=== PATIENT | female | born 1965 | race Hispanic/Latino ===

== ENCOUNTER 2021-03-01 09:01 | Outpatient (CLI) | payer OTHER | END 2021-03-01 09:02 | disposition home or self-care (01) | LOC: BICULT 09:01 | PROVIDERS: ATTEND Family Medicine | DX: R94.5 Abnormal results of liver function studies (principal); K80.20 Calculus of gallbladder without cholecystitis without obstruction | CPT/HCPCS: 76705 ==

== ENCOUNTER 2021-06-03 22:04 | Observation (INO) | payer OTHER ==
[~2021-06-03 22:04] MED LIST: Iopamidol-370 76% 500 ML 1 ML ONE
[2021-06-03] MEDS ORDERED: Ondansetron PF 4 MG/2 ML Vial ONE (22:38)
[2021-06-03] MEDS ORDERED: Morphine 4 MG/ML VIAL ONE (22:38)
[2021-06-03 23:26] LABS: Hemoglobin 13.3 g/dL (12.0-16.0); Mean Corpuscular HGB CONC 35.1 g/dL (32.0-36.0); Mean Corpuscular Hemoglobin 34.2 pg (27.0-31.0); Mean Corpuscular Volume 97.4 fL (78.0-98.0); RBC Distribution Width 13.6 % (11.5-14.5); White Blood Cell (WBC) Count 6.5 thou/uL (4.8-10.8)
[2021-06-03 23:44] LABS: #Eosinphils 0.1 thou/uL (0.0-0.7); #Lymphocytes 0.7 thou/uL (1.20-3.40); #Monocytes 0.4 thou/uL (0.11-0.59); #Neutrophils 5.3 thou/uL (1.40-6.50); %Basophils 0.5 % (0.0-1.0); %Eosinophils 1.5 % (0.0-10.0); %Lymphocytes 9.9 % (21.0-51.0); %Monocytes 6.5 % (0.0-10.0); %Neutrophils 81.6 % (42.0-75.0); Mean Platelet Volume 9.3 fL (7.4-10.4); Platelet Count 78 thou/uL (130-400); Platelet Morphology Comment Appears Decreased
[2021-06-04] MEDS ORDERED: Morphine 4 MG/ML VIAL ONE ×2 (00:04→10:58)
[2021-06-04 00:19] LABS: ALT (SGPT) 42 U/L (8-55); AST (SGOT) 72 U/L (5-34); Albumin 3.6 g/dL (3.5-5.0); Alkaline Phosphatase 248 U/L (40-110); Anion Gap 10 mmol/L (10-20); BUN (Urea Nitrogen) 21 mg/dL (9.8-20.1); Bilirubin, Total 1.1 mg/dL (0.2-1.2); Calc. Creatinine Clearance 0 mL/min (70-130); Calcium 9.9 mg/dL (7.8-10.44); Carbon Dioxide 28 mmol/L (22-29); Chloride 101 mmol/L (98-107); Globulin 3.9 g/dL (2.4-3.5); Glucose 115 mg/dL (70-105); Potassium 3.1 mmol/L (3.5-5.1); Protein, Total 7.5 g/dL (6.0-8.3); Sodium 136 mmol/L (136-145)
[2021-06-04] MEDS ORDERED: hydrALAZINE 20 MG/ML VIAL SLOW IVP PRN (01:00)
[2021-06-04] MEDS ORDERED: Dextrose 50% Abboject 50 ML SYRINGE SLOW IVP PRN (01:00)
[2021-06-04] MEDS ORDERED: Rib Fracture Protocol PO SCH (01:00)
[2021-06-04] MEDS ORDERED: Dextrose 5% in Water 1,000 ML IV PRN (01:00)
[2021-06-04] MEDS ORDERED: Ondansetron PF 4 MG/2 ML Vial IVP PRN (01:00)
[2021-06-04 01:27] LABS: Phosphorus 3.8 mg/dL (2.3-4.7)
[2021-06-04 01:28] LABS: Bilirubin Negative (Negative); Blood, Urine Negative (Negative); Clarity Clear (Clear); Glucose, Urine (Dipstick) Normal (Negative); Ketone, Urine Negative (Negative); Leukocyte Negative Leu/uL (Negative); Nitrite Negative (Negative); Protein, Urine (Dipstick) Negative (Neg-Trace); Specific Gravity, Urine 1.043 (1.002-1.036); Urobilinogen Normal mg/dL (Less than 2); pH, Urine 6.5 (5.0-9.0)
[2021-06-04 01:29] LABS: Magnesium 1.8 mg/dL (1.6-2.6)
[2021-06-04] MEDS ORDERED: Cyclobenzaprine 10 MG TAB PO PRN (01:30)
[2021-06-04] MEDS ORDERED: Potassium Chloride 40 MEQ in Sodium Chloride 0.9% 250 ML 250 ML IVPB SCH (01:30)
[2021-06-04] MEDS ORDERED: Ibuprofen 200 MG TAB ONE (03:55)
[2021-06-04] MEDS: Ibuprofen 200 MG TAB PO SCH ×3 (04:00→20:14)
[2021-06-04] MEDS ORDERED: Acetaminophen 500 MG TAB PO SCH ×3 (04:00→06:00)
[2021-06-04] MEDS ORDERED: Gabapentin 300 MG CAP PO SCH ×2 (04:00→09:00)
[2021-06-04] MEDS: Cyclobenzaprine 10 MG TAB PO PRN ×2 (04:17→20:15)
[2021-06-04] MEDS ORDERED: traMADol HCl 50 MG TAB ONE (04:22)
[2021-06-04] MEDS ORDERED: Acetaminophen 500 MG TAB ONE (04:22)
[2021-06-04] MEDS: traMADol HCl 50 MG TAB PO SCH ×4 (05:30→22:20)
[2021-06-04] MEDS ORDERED: Ibuprofen 200 MG TAB PO SCH (06:00)
[2021-06-04] MEDS ORDERED: traMADol HCl 50 MG TAB PO SCH (06:00)
[2021-06-04] MEDS ORDERED: Morphine 4 MG/ML VIAL SLOW IVP PRN (10:45)
[2021-06-04] MEDS ORDERED: Morphine 4 MG/ML VIAL SLOW IVP SCH (11:15)
[2021-06-04] MEDS ORDERED: Ibuprofen 800 MG TAB ONE (13:28)
[2021-06-04] MEDS: Gabapentin 300 MG CAP PO SCH ×2 (15:13→20:14)
[2021-06-04 15:58] VITALS: BMI 27.1
[2021-06-04] MEDS ORDERED: FLU VACC QS2021-22(6MOS UP)/PF 60 MCG/0.5 ML SYRINGE IM ONE (17:30)
[2021-06-04 19:28] LABS: SARS-CoV-2 NAA Rapid Test Not Detected (NotDetected)
[2021-06-05] MEDS: Ibuprofen 200 MG TAB PO SCH ×2 (04:51→11:24)
[2021-06-05] MEDS: traMADol HCl 50 MG TAB PO SCH ×2 (04:52→10:03)
[2021-06-05 05:16] LABS: Anion Gap 10 mmol/L (10-20); BUN (Urea Nitrogen) 22 mg/dL (9.8-20.1); Calc. Creatinine Clearance 84 mL/min (70-130); Calcium 8.7 mg/dL (7.8-10.44); Carbon Dioxide 28 mmol/L (22-29); Chloride 106 mmol/L (98-107); Glucose 83 mg/dL (70-105); Magnesium 1.9 mg/dL (1.6-2.6); Phosphorus 4.3 mg/dL (2.3-4.7); Potassium 3.7 mmol/L (3.5-5.1); Sodium 140 mmol/L (136-145)
[2021-06-05 05:37] LABS: #Eosinphils 0.2 thou/uL (0.0-0.7); #Lymphocytes 0.7 thou/uL (1.20-3.40); #Monocytes 0.4 thou/uL (0.11-0.59); #Neutrophils 1.8 thou/uL (1.40-6.50); %Basophils 1.4 % (0.0-1.0); %Eosinophils 6.4 % (0.0-10.0); %Lymphocytes 22.1 % (21.0-51.0); %Monocytes 11.4 % (0.0-10.0); %Neutrophils 58.8 % (42.0-75.0); Hemoglobin 12.4 g/dL (12.0-16.0); Mean Corpuscular HGB CONC 31.9 g/dL (32.0-36.0); Mean Corpuscular Hemoglobin 32.2 pg (27.0-31.0); Platelet Count 80 thou/uL (130-400); RBC Distribution Width 13.8 % (11.5-14.5); Red Blood Cell (RBC) Count 3.85 mill/uL (4.20-5.40); White Blood Cell (WBC) Count 3.1 thou/uL (4.8-10.8)
[2021-06-05] MEDS: Gabapentin 300 MG CAP PO SCH (08:17)
[2021-06-05] MEDS ORDERED: Atorvastatin Calcium 10 MG TAB PO SCH (09:00)
[2021-06-05] MEDS ORDERED: Hydrochlorothiazide 25 MG TAB PO SCH (09:00)
[2021-06-05] MEDS ORDERED: Lisinopril 20 MG TAB PO SCH (09:00)
[2021-06-05 12:27] VITALS: BP 118/77; TEMP 98.5
== END 2021-06-05 12:43 ==
LOC: ERS 22:04 → ERHOLD 06-04 01:00 → SURG A 06-04 14:44
PROVIDERS: ADMIT Surgery; ATTEND Surgery
DX: S27.2XXA Traumatic hemopneumothorax, initial encounter (principal); S22.42XA Multiple fractures of ribs, left side, initial encounter for closed fracture; S00.83XA Contusion of other part of head, initial encounter; G89.11 Acute pain due to trauma; E87.6 Hypokalemia; K74.60 Unspecified cirrhosis of liver; K76.6 Portal hypertension; I10 Essential (primary) hypertension; F10.21 Alcohol dependence, in remission; Z85.3 Personal history of malignant neoplasm of breast; Z79.899 Other long term (current) drug therapy; Z20.822 Contact with and (suspected) exposure to COVID-19; Y04.2XXA Assault by strike against or bumped into by another person, initial encounter; Y92.149 Unspecified place in prison as the place of occurrence of the external cause
CPT/HCPCS: 36415; 70450; 70486; 71045; 71260; 72125; 74177; 80048; 80053; 81003; 83735; 84100; 85025; 94640; 96374; 96375; 96376; G0378; G0390; J1956; J2270; J2405; J3480; J7050; J7620; Q9967; U0002